=== PATIENT | female | born 1985 | race Hispanic/Latino ===

== ENCOUNTER 2017-10-18 21:10 | Emergency (ER) | payer OTHER, SELFPAY ==
[2017-10-18] MEDS ORDERED: diphenhydrAMINE 12.5 MG/5 ML UDCUP ONE (23:35)
[2017-10-18] MEDS ORDERED: Metoclopramide HCl 10 MG/2 ML VIAL ONE (23:35)
[2017-10-18] MEDS ORDERED: diphenhydrAMINE 50 MG/ML VIAL ONE (23:36)
[2017-10-19 00:01] LABS: #Eosinphils 0.1 thou/uL (0.0-0.7); #Lymphocytes 1.8 thou/uL (1.20-3.40); #Monocytes 0.4 thou/uL (0.11-0.59); %Basophils 0.3 % (0.0-1.0); %Eosinophils 1.1 % (0.0-10.0); %Lymphocytes 28.3 % (21.0-51.0); %Monocytes 6.3 % (0.0-10.0); %Neutrophils 63.9 % (42.0-75.0); Hemoglobin 14.2 g/dL (12.0-16.0); Mean Corpuscular HGB CONC 34.2 g/dL (32.0-36.0); Mean Corpuscular Hemoglobin 31.5 pg (27.0-31.0); Mean Corpuscular Volume 91.9 fl (81.0-99.0); Mean Platelet Volume 7.6 fL (7.4-10.4); Platelet Count 249 thou/uL (130-400); RBC Distribution Width 11.6 % (11.5-14.5); Red Blood Cell (RBC) Count 4.51 mill/uL (4.20-5.40); White Blood Cell (WBC) Count 6.2 thou/uL (4.8-10.8)
[2017-10-19 00:10] LABS: BHCG - Serum Negative (NEGATIVE); Pregs Control Background? CLEAR/WHITE (CLR/WHITE); Pregs Control Bar Appear? YES (CONTROL BAR)
[2017-10-19 00:21] LABS: Bilirubin Negative (Negative); Blood, Urine Large (Negative); Clarity CLEAR (Clear); Glucose, Urine (Dipstick) Negative (Negative); Leukocyte Negative (Negative); Nitrite Negative (Negative); Protein, Urine (Dipstick) Negative (Neg-Trace); Urobilinogen 0.2 mg/dL (0.2-1.0); pH, Urine 6.5 (5.0-9.0)
[2017-10-19 00:23] LABS: ALT (SGPT) 13 U/L (8-55); AST (SGOT) 13 U/L (5-34); Albumin 4.7 g/dL (3.5-5.0); Alkaline Phosphatase 66 U/L (40-150); Anion Gap 12 mmol/L (10-20); BUN (Urea Nitrogen) 12 mg/dL (7.0-18.7); Bilirubin, Total 0.3 mg/dL (0.2-1.2); Calc. Creatinine Clearance 0 mL/min (70-130); Calcium 9.5 mg/dL (7.8-10.44); Carbon Dioxide 22 mmol/L (22-29); Chloride 108 mmol/L (98-107); Estimated GFR-MDRD Greater than 90; Globulin 3.3 g/dL (2.4-3.5); Glucose 82 mg/dL (70-105); Sodium 138 mmol/L (136-145)
[2017-10-19 00:24] LABS: Bacteria/HPF None Seen HPF (None Seen); Hyaline Casts/LPF 0-3 HYALINE CAST LPF (0-3 Hyaline); Pathc Cast-AUWi Flag 0.14 (0-2.49); Squamous Epithelial 0-3 HPF (0-3); WBC/HPF None Seen HPF (0-3)
[2017-10-19] MEDS ORDERED: Ketorolac Tromethamine 30 MG/ML VIAL ONE (01:15)
[2017-10-19] MEDS ORDERED: Methocarbamol 500 MG TAB PO SCH (01:30)
--- NOTE | 2017-10-19 13:35 | CT ---
PRELIMINARY REPORT/[facility]/EMERGENCY AFTER HOURS PROCEDURE: EXAM: CT Head Without Intravenous Contrast CLINICAL HISTORY: 32 years old, female; Pain; Headache; Patient HX: Er 5; F32 presents to ed C/O hand swelling and ALVARADO. Pt had a ALVARADO the past x3 days and reports swelling and pain in her hands bilaterally that starts in he r arms. Pt denies: Fevers, difficulty ambulating, falls/ traumas. Pt has not had a similar episode be fore. TECHNIQUE: Axial computed tomography images of the head/brain without intravenous contrast. COMPARISON: No relevant prior studies available. FINDINGS: Brain: Mild volume loss No hemorrhage.No significant white matter disease. No edema. Ventricles: Unremarkable. No ventriculomegaly. Bones/joints: Unremarkable. No acute fracture. Soft tissues: Unremarkable. Sinuses: Unremarkable as visualized. No acute sinusitis. Mastoid air cells: Unremarkable as visualized. No mastoid effusion. IMPRESSION: No intracranial hemorrhage.Please see discussion above. Thank you for allowing us to participate in the care of your patient. Dictated and Authenticated by: Lico Mobley MD 10/19/2017 12:34 AM Central Time ([place] & [place]) FINAL REPORT NONCONTRAST HEAD CT: Date: 10/18/17 HISTORY: Headache. COMPARISON: None. TECHNIQUE: Noncontrast head CT is performed from skull base to skull vertex. FINDINGS: This report is in agreement with the preliminary report by [facility]. No acute intracranial process. POS: [facility]
== END 2017-10-19 02:19 | disposition home or self-care (01) ==
LOC: ERS 21:10
DX: R51 Headache (principal)
CPT/HCPCS: 70450; 80053; 81003; 81015; 84703; 85025; 96365; 96366; 96375; J1200; J1885; J2765

== ENCOUNTER 2018-09-08 07:48 | Emergency (ER) | payer SELFPAY ==
[2018-09-08 08:29] LABS: Bilirubin Negative (Negative); Blood, Urine Small (Negative); Clarity CLEAR (Clear); Glucose, Urine (Dipstick) Negative (Negative); Leukocyte Negative (Negative); Nitrite Negative (Negative); Protein, Urine (Dipstick) Negative (Neg-Trace); Urobilinogen 0.2 mg/dL (0.2-1.0)
[2018-09-08 08:32] LABS: Bacteria/HPF None Seen HPF (None Seen); Hyaline Casts/LPF 0-3 HYALINE CAST LPF (0-3 Hyaline); Pathc Cast-AUWi Flag 0.14 (0-2.49); Squamous Epithelial 0-3 HPF (0-3); WBC/HPF None Seen HPF (0-3)
--- NOTE | 2018-09-08 09:26 | ULT ---
PELVIC ULTRASOUND: Comparison: None. History: 5 week female with bleeding. Technique: Multiplanar grayscale and color doppler images were obtained in a transabdominal and trans vaginal pelvic ultrasound. Spectral analysis of the doppler waveforms of the ovaries were performed. FINDINGS: No gestational sac is seen within the uterus. The uterus is normal in size. There is a 2.2 cm lesion along the anterior aspect of the uterus which may represent a small fibroid. The endometrial stripe i s normal in thickness measuring 11 mm. A small amount of free fluid is seen in the pelvis. Both ovaries are normal in size and appearance an d demonstrate normal internal flow. IMPRESSION: 1. No identified. 2. Possible small uterine fibroid. POS: [facility]
== END 2018-09-08 09:57 | disposition home or self-care (01) ==
LOC: ERS 07:48
DX: O20.0 Threatened abortion (principal); Z3A.01 Less than 8 weeks gestation of pregnancy
CPT/HCPCS: 36415; 76856; 81003; 81015; 84702; 86900; 86901

== ENCOUNTER 2019-11-27 11:01 | Emergency (ER) | payer OTHER | END 2019-11-27 12:00 | disposition home or self-care (01) | LOC: ERS 11:01 | DX: J20.9 Acute bronchitis, unspecified (principal) | CPT/HCPCS: 99283 ==

== ENCOUNTER 2019-11-30 10:51 | Inpatient (IN) | payer OTHER, SELFPAY ==
[2019-11-30] MEDS ORDERED: Azithromycin 500 MG VIAL ONE (11:41)
[2019-11-30] MEDS ORDERED: cefTRIAXone\\ROCEPHIN 1 GM VIAL ONE (11:41)
[2019-11-30 11:44] LABS: Bacteria/HPF None Seen HPF (None Seen); Bilirubin Negative (Negative); Blood, Urine Negative (Negative); Clarity Clear (Clear); Glucose, Urine (Dipstick) Normal (Negative); Leukocyte Negative Leu/uL (Negative); Nitrite Negative (Negative); Protein, Urine (Dipstick) 100 mg/dL (Neg-Trace); RBC/HPF 0-3 HPF (0-3); WBC/HPF 0-3 HPF (0-3)
[2019-11-30 11:50] LABS: #Lymphocytes 1.7 thou/uL (1.20-3.40); #Monocytes 0.7 thou/uL (0.11-0.59); #Neutrophils 12.4 thou/uL (1.40-6.50); %Basophils 0.1 % (0.0-1.0); %Lymphocytes 11.4 % (21.0-51.0); %Monocytes 4.7 % (0.0-10.0); %Neutrophils 83.9 % (42.0-75.0); Hemoglobin 6.3 g/dL (12.0-16.0); Mean Corpuscular HGB CONC 33.5 g/dL (32.0-36.0); Mean Corpuscular Hemoglobin 30.9 pg (27.0-31.0); Mean Corpuscular Volume 92.2 fL (78.0-98.0); Mean Platelet Volume 7.7 fL (7.4-10.4); Platelet Count 451 thou/uL (130-400); RBC Distribution Width 11.5 % (11.5-14.5); Red Blood Cell (RBC) Count 2.02 mill/uL (4.20-5.40); White Blood Cell (WBC) Count 14.7 thou/uL (4.8-10.8)
--- NOTE | 2019-11-30 11:50 | RAD ---
EXAM: CHEST ONE VIEW HISTORY: Bronchitis. Decreased oxygen saturation. Elevated heart rate. COMPARISON: None FINDINGS: Cardiac silhouette and pulmonary vasculature are within normal limits. There are increased interstiti al and patchy parenchymal densities seen in the left perihilar location and at each lung base. No pleural fluid is seen. The osseous structures are intact. IMPRESSION: Increased interstitial and patchy parenchymal densities seen in the left perihilar location and at ea ch lung base. Findings are suggestive of pneumonia, and findings could be related to atypical pneumonia. Viral pneumonitis is also a differential consideration.
[2019-11-30 12:20] LABS: ALT (SGPT) 26 U/L (8-55); AST (SGOT) 22 U/L (5-34); Albumin 3.7 g/dL (3.5-5.0); Alkaline Phosphatase 63 U/L (40-110); Anion Gap 13 mmol/L (10-20); BUN (Urea Nitrogen) 9 mg/dL (7.0-18.7); Bilirubin, Total 0.4 mg/dL (0.2-1.2); Calc. Creatinine Clearance 0 mL/min (70-130); Calcium 8.3 mg/dL (7.8-10.44); Carbon Dioxide 19 mmol/L (22-29); Chloride 108 mmol/L (98-107); Estimated GFR-MDRD Greater than 90; Globulin 3.5 g/dL (2.4-3.5); Glucose 119 mg/dL (70-105); Potassium 3.4 mmol/L (3.5-5.1); Protein, Total 7.2 g/dL (6.0-8.3); Sodium 137 mmol/L (136-145)
[2019-11-30] MEDS ORDERED: Ondansetron PF 4 MG/2 ML Vial IVP PRN (12:49)
[2019-11-30 12:58] LABS: BHCG - Serum Negative (NEGATIVE); Pregs Control Background? CLEAR/WHITE (CLR/WHITE); Pregs Control Bar Appear? YES (CONTROL BAR)
[2019-11-30] MEDS ORDERED: Sodium Chloride 0.9% 1,000 ML IV SCH (13:00)
[2019-11-30] MEDS: Sodium Chloride 0.9% 1,000 ML IV SCH (16:29)
[2019-11-30 17:22] LABS: SARS-CoV-2 MS2 Negative; SARS-CoV-2 N Gene Positive; SARS-CoV-2 S Gene Positive; SARS-CoV-2 orf1ab Positive
[2019-11-30] MEDS: Acetaminophen 325 MG TAB PO PRN (17:40)
[2019-11-30 18:13] VITALS: BMI 26.9
[2019-11-30 22:40] LABS: Hemoglobin 13.3 g/dL (12.0-16.0)
[2019-12-01 04:24] LABS: Band 13 % (5-11); Hemoglobin 13.4 g/dL (12.0-16.0); Lymphocytes 18 % (21-51); MDiff Complete? YES; Mean Corpuscular HGB CONC 33.5 g/dL (32.0-36.0); Mean Corpuscular Hemoglobin 30.9 pg (27.0-31.0); Mean Corpuscular Volume 92.3 fL (78.0-98.0); Monocytes 6 % (0-10); Neutrophil 63 % (42-75); Platelet Count 298 thou/uL (130-400); Platelet Morphology Comment Appears Adequate; RBC Morphology Normal; Red Blood Cell (RBC) Count 4.33 mill/uL (4.20-5.40); White Blood Cell (WBC) Count 6.5 thou/uL (4.8-10.8)
[2019-12-01 04:33] LABS: Anion Gap 12 mmol/L (10-20); BUN (Urea Nitrogen) 7 mg/dL (7.0-18.7); Calc. Creatinine Clearance 164 mL/min (70-130); Calcium 7.7 mg/dL (7.8-10.44); Carbon Dioxide 19 mmol/L (22-29); Chloride 112 mmol/L (98-107); Estimated GFR-MDRD Greater than 90; Glucose 97 mg/dL (70-105); Potassium 3.9 mmol/L (3.5-5.1); Sodium 139 mmol/L (136-145)
--- NOTE | 2019-12-01 05:37 | HP ---
CHIEF COMPLAINT: Shortness of breath. HISTORY OF PRESENT ILLNESS: The patient is a 34-year-old female, who presented to the emergency department with complaints of shortness of breath and fever for the past week. The patient's symptoms started over a week ago and she visited an outside emergency department, where she was diagnosed with pneumonia and given some antibiotics. The patient went home and took the antibiotics; however, her symptoms worsened and her fever did not resolve, which prompted her to come back to the ER today. She was found to be febrile, tachycardic, and tachypneic with elevated white count concerning for sepsis. Chest x-ray showed bilateral diffuse infiltrates suggesting viral infection. REVIEW OF SYSTEMS: Negative except as noted in HPI. PAST MEDICAL AND SURGICAL HISTORY: No significant history noted. SOCIAL HISTORY: The patient drinks socially. Denies smoking or illicit drug use. FAMILY HISTORY: Noncontributory for her current presentation. PHYSICAL EXAMINATION: GENERAL: The patient is alert and oriented x3. HEENT: Head is normocephalic and atraumatic. Extraocular muscles are intact. NECK: Supple. CHEST: Auscultation reveals crackles bilaterally. CARDIOVASCULAR: Reveals normal S1 and S2, regular rate and rhythm. No murmurs, rubs, or gallops. ABDOMEN: Soft, nontender, and nondistended. EXTREMITIES: Show no edema. ASSESSMENT: 1. Sepsis. 2. Acute hypoxic respiratory failure. 3. Bilateral pneumonia. 4. Coronavirus infection, likely. PLAN: Admit the patient to the hospital and start broad-spectrum antibiotics with IV ceftriaxone and azithromycin for pneumonia. Start IV fluids. Tylenol for fever and pain control. Follow the results of the cultures and serology for coronavirus. Job ID: [id number]
[2019-12-01] MEDS ORDERED: HYDROcodone/Chlorphen Polis 5 ML UDCUP PO PRN (07:44)
--- NOTE | 2019-12-01 08:12 | CON ---
DATE OF CONSULTATION: 12/01/2019 CONSULTING PHYSICIAN: Dr. Kidd from the [facility]. REASON FOR CONSULTATION: COVID-19 pneumonia. HISTORY OF PRESENT ILLNESS: A 34-year-old female, who speaks Macanese only. She came in last night with shortness of breath and fever that had been occurring over the last week. She says symptoms started over a week ago. She was seen in the outside hospital. She was diagnosed with pneumonia, given some antibiotics. She indicates that several family members have similar symptoms including her son. She has been diagnosed with COVID-19 pneumonia by PCR. PAST MEDICAL HISTORY: Unremarkable. PAST SURGICAL HISTORY: None. SOCIAL HISTORY: Nonsmoker. She does drink occasionally. FAMILY MEDICAL HISTORY: Unremarkable. REVIEW OF SYSTEMS: Otherwise negative for cough and congestion. PHYSICAL EXAMINATION: VITAL SIGNS: Temperature 98.3, O2 saturation is 99% on 3 L, and pulse 57. HEENT: Unremarkable. NECK: No adenopathy or JVD. LUNGS: Crackles bilaterally. CARDIOVASCULAR: S1 and S2. Regular. ABDOMEN: Soft and nontender. EXTREMITIES: No clubbing, cyanosis, or edema. LABORATORY DATA: Urinalysis shows proteinuria. White blood cell count 6.5, hematocrit 39.9, platelet count 298 with 63% neutrophils, 13% bands. Sodium 139, potassium 3.9, chloride 112, CO2 of 19, BUN 7, creatinine 0.5, and glucose 97. Chest x-ray shows bilateral infiltrative changes. ASSESSMENT: COVID-19 with pneumonia. RECOMMENDATIONS: 1. I would recommend generalized supportive care with low-flow oxygen, antitussive medication, gentle rehydration. 2. If worsens, consider plasma and IL-6 inhibitor. 3. From my standpoint, she is stable enough to go to the COVID unit. Job ID: [id number]
[2019-12-01] MEDS: Sodium Chloride 0.9% 1,000 ML IV SCH ×2 (08:33)
[2019-12-01] MEDS: Enoxaparin Sodium 40 MG/0.4 ML SYRINGE SC SCH (08:33)
[2019-12-01] MEDS: Famotidine/PF 20 mg/2ml Vial SLOW IVP SCH ×2 (08:34→20:30)
[2019-12-01] MEDS ORDERED: cefTRIAXone\\ROCEPHIN 2 GM in Sodium Chloride 0.9% 100 ML IVPB SCH (11:00)
--- NOTE | 2019-12-01 11:08 | PDOC.HOSPP ---
- Subjective Encounter Date: 12/01/19 Encounter Time: 10:00 Subjective: Patient seen and examined. No overnight events, pt has cough, mild dyspnea, but she overall feels OK - Objective Vital Signs & Weight: Vital Signs (12 hours) Temp Pulse Ox 12/01/19 08:00 98.3 F 99 12/01/19 04:00 98.3 F 12/01/19 00:21 96 12/01/19 00:00 97.8 F Weight Weight 161 lb 9.581 oz Most Recent Monitor Data Heart Rate from ECG 66 NIBP 115/69 NIBP BP-Mean 84 Respiration from ECG 40 SpO2 98 I&O: 11/30/19 12/01/19 12/02/19 06:59 06:59 06:59 Intake Total 2466 Output Total 1750 Balance 716 Result Diagrams: 12/01/19 03:57 12/01/19 03:57 Radiology Reviewed by me: Yes EKG Reviewed by me: Yes Hospitalist ROS - Review of Systems Constitutional: denies: fever, chills, sweats, weakness, malaise, other Respiratory: reports: cough, shortness of breath. denies: dry, hemoptysis, SOB with excertion, pleuritic pain, sputum, wheezing, other Cardiovascular: denies: chest pain, palpitations, orthopnea, paroxysmal noc. dyspnea, edema, light headedness, other Gastrointestinal: denies: nausea, vomiting, abdominal pain, diarrhea, constipation, melena, hematochezia, other Genitourinary: denies: dysuria, frequency, incontinence, hematuria, retention, other Musculoskeletal: denies: neck pain, shoulder pain, arm pain, back pain, hand pain, leg pain, foot pain, other Skin: denies: rash, lesions, nain, bruising, other - Medication Medications: Active Medications Generic Name Dose Route Start Last Admin Trade Name Freq PRN Reason Stop Dose Admin Acetaminophen 650 mg 11/30/19 12:49 11/30/19 17:40 Tylenol PO 650 mg Q4H PRN Administration Headache/Fever/Mild Pain (1-3) Enoxaparin Sodium 40 mg 12/01/19 09:00 12/01/19 08:33 Lovenox SC 40 mg 0900 NATALYA Administration Famotidine 20 mg 12/01/19 09:00 12/01/19 08:34 Pepcid SLOW IVP 20 mg BID NATALYA Administration Sodium Chloride 1,000 mls @ 100 mls/hr 11/30/19 13:00 12/01/19 08:33 Normal Saline 0.9% IV 1,000 mls .Q10H NATALYA Administration - Exam General Appearance: NAD, awake alert Eye: PERRL, anicteric sclera ENT: normocephalic atraumatic, no oropharyngeal lesions, moist mucosa Neck: supple, symmetric, no JVD, no thyromegaly Heart: RRR, no murmur, no gallops, no rubs Respiratory: CTAB, no wheezes, no rales Gastrointestinal: soft, non-tender, non-distended, normal bowel sounds Extremities: no cyanosis, no clubbing, no edema Skin: normal turgor, no lesions Neurological: no focal deficits Musculoskeletal: normal tone, normal strength Psychiatric: normal affect, normal behavior Hosp A/P (1) COVID-19 virus infection Code(s): U07.1 - COVID-19 Status: Acute (2) Pneumonia Code(s): J18.9 - PNEUMONIA, UNSPECIFIED ORGANISM Status: Acute Plan: due to covid-19 - Plan old records reviewed/req, continue antibiotics today will transfer to regular floor will monitor in hospital for any deterioration, currently stable I spoke with patient with ic design manager phone and plan of care discussed to her. DC IVF currently on rocephin and azithromycin will get EKG to check QT interval medication reviewed and continue to provide symptomatic care if condition deteriorates, will consider plasma therapy discussed with pulmonary
[2019-12-01] MEDS ORDERED: hydrALAZINE 20 MG/ML VIAL SLOW IVP PRN (11:19)
[2019-12-01] MEDS ORDERED: Senokot S 8.6-50 MG TAB PO PRN (11:19)
[2019-12-01] MEDS ORDERED: Bisacodyl 5 MG TAB PO PRN (11:19)
[2019-12-01] MEDS ORDERED: Benzonatate 100 MG CAP PO PRN (11:19)
[2019-12-01] MEDS ORDERED: Loperamide HCl 2 MG CAP PO PRN (11:19)
[2019-12-01] MEDS ORDERED: Cepastat Lozenges 1 LOZ PO PRN (11:19)
[2019-12-01] MEDS ORDERED: Diabetic Tussin 200 MG/10 ML UDCUP PO PRN (11:19)
[2019-12-01] MEDS ORDERED: Loratadine 10 MG TAB PO PRN (11:19)
[2019-12-01] MEDS ORDERED: Sodium Chloride 0.65% Nasal 44 ML BOT EA NARE PRN (11:19)
[2019-12-01] MEDS: Azithromycin 500 MG in Sodium Chloride 0.9% 250 ML 250 ML IVPB SCH (12:03)
[2019-12-02] MEDS: Acetaminophen 325 MG TAB PO PRN ×2 (03:27→12:02)
[2019-12-02 04:58] LABS: Band 9 % (5-11); Eosinophils 1 % (0-10); Hemoglobin 13.3 g/dL (12.0-16.0); Lymphocytes 11 % (21-51); MDiff Complete? YES; Mean Corpuscular Hemoglobin 30.3 pg (27.0-31.0); Mean Corpuscular Volume 91.6 fL (78.0-98.0); Mean Platelet Volume 7.7 fL (7.4-10.4); Monocytes 5 % (0-10); Neutrophil 74 % (42-75); Platelet Count 338 thou/uL (130-400); Platelet Morphology Comment Appears Adequate; RBC Distribution Width 11.9 % (11.5-14.5); Red Blood Cell (RBC) Count 4.39 mill/uL (4.20-5.40); White Blood Cell (WBC) Count 8.3 thou/uL (4.8-10.8)
[2019-12-02 05:10] LABS: Anion Gap 11 mmol/L (10-20); BUN (Urea Nitrogen) 6 mg/dL (7.0-18.7); Calc. Creatinine Clearance 158 mL/min (70-130); Carbon Dioxide 20 mmol/L (22-29); Chloride 110 mmol/L (98-107); Estimated GFR-MDRD Greater than 90; Glucose 97 mg/dL (70-105); Potassium 3.2 mmol/L (3.5-5.1); Sodium 138 mmol/L (136-145)
[2019-12-02] MEDS: Zinc Sulfate 220 MG CAP PO SCH (08:36)
[2019-12-02] MEDS: Enoxaparin Sodium 40 MG/0.4 ML SYRINGE SC SCH (08:36)
[2019-12-02] MEDS: Ascorbic Acid 500 mg Chewable Tablet PO SCH (08:36)
[2019-12-02] MEDS: Famotidine/PF 20 mg/2ml Vial SLOW IVP SCH ×2 (08:36→20:11)
--- NOTE | 2019-12-02 09:02 | PRG ---
DATE OF SERVICE: 12/02/2019 SUBJECTIVE: The patient says she is feeling much better today. Her cough has dissipated. OBJECTIVE: VITAL SIGNS: Temperature 98.7, pulse 74, O2 saturation 100% on 3 L, blood pressure 98/55, respiratory rate in the high teens. HEENT: Unremarkable. NECK: No JVD. LUNGS: Clear anteriorly. CARDIAC: S1, S2. Regular. ABDOMEN: Soft. EXTREMITIES: No edema. LABORATORY DATA: Sodium 138, potassium 3.2, chloride 110, CO2 of 20, BUN 6, creatinine 0.5, and glucose 97. Ferritin level 197. C-reactive protein 3.7. White blood cell count 8.3, hematocrit 40, and platelet count 338. ASSESSMENT: COVID-19 infection, so far seems to be getting better. She has pneumonia with this. RECOMMENDATION: Continue monitoring oxygen level and continue generalized supportive care. If she worsens, I would have her placed in the prone position for periods during the day and also consider plasma. Job ID: [id number]
--- NOTE | 2019-12-02 09:49 | PDOC.HOSPP ---
- Subjective Encounter Date: 12/02/19 Encounter Time: 07:45 Subjective: last night she was short of breath, required more oxygen. this morning she feels better. - Objective Vital Signs & Weight: Vital Signs (12 hours) Temp Pulse Resp BP Pulse Ox 12/02/19 07:31 97 12/02/19 03:35 97 12/02/19 03:20 98.7 F 74 30 H 98/55 L 89 L Weight Admit Weight 161 lb 9.581 oz Weight 161 lb 9.581 oz Most Recent Monitor Data Heart Rate from ECG 66 NIBP 115/69 NIBP BP-Mean 84 Respiration from ECG 40 SpO2 98 I&O: 12/01/19 12/02/19 12/03/19 06:59 06:59 06:59 Intake Total 2466 600 Output Total 1750 Balance 716 600 Result Diagrams: 12/02/19 04:29 12/02/19 04:29 EKG Reviewed by me: Yes Hospitalist ROS - Review of Systems Eyes: denies: pain, vision change, conjunctivae inflammation, eyelid inflammation, redness, other ENT: denies: ear pain, ear discharge, nose pain, nose discharge, nose congestion , mouth pain, mouth swelling, throat pain, throat swelling, other Respiratory: reports: cough, shortness of breath. denies: dry, hemoptysis, SOB with excertion, pleuritic pain, sputum, wheezing, other Cardiovascular: denies: chest pain, palpitations, orthopnea, paroxysmal noc. dyspnea, edema, light headedness, other Gastrointestinal: denies: nausea, vomiting, abdominal pain, diarrhea, constipation, melena, hematochezia, other Genitourinary: denies: dysuria, frequency, incontinence, hematuria, retention, other Musculoskeletal: denies: neck pain, shoulder pain, arm pain, back pain, hand pain, leg pain, foot pain, other Skin: denies: rash, lesions, nain, bruising, other - Medication Medications: Active Medications Generic Name Dose Route Start Last Admin Trade Name Freq PRN Reason Stop Dose Admin Acetaminophen 650 mg 11/30/19 12:49 12/02/19 03:27 Tylenol PO 650 mg Q4H PRN Administration Headache/Fever/Mild Pain (1-3) Ascorbic Acid 1,000 mg 12/02/19 09:00 12/02/19 08:36 Vitamin C PO 1,000 mg DAILY NATALYA Administration Chlorphenir/Hydrocodone Polistirex 5 ml 12/01/19 07:44 12/02/19 03:31 Tussionex PO 5 ml Q12H PRN Administration Cough Enoxaparin Sodium 40 mg 12/01/19 09:00 12/02/19 08:36 Lovenox SC 40 mg 0900 NATALYA Administration Famotidine 20 mg 12/01/19 09:00 12/02/19 08:36 Pepcid SLOW IVP 20 mg BID NATALYA Administration Azithromycin 500 mg/ Sodium 250 mls @ 250 mls/hr 12/01/19 12:00 12/01/19 12: 03 Chloride IVPB 250 mls 1200 NATALYA Administration Loperamide HCl 2 mg 12/01/19 11:19 12/01/19 21:00 Imodium PO 2 mg PRN PRN Administration Diarrhea/Loose Stools Sodium Chloride 10 ml 12/02/19 09:00 12/02/19 08:36 Flush - Normal Saline IVF 10 ml Q12HR NATALYA Administration Zinc Sulfate 220 mg 12/02/19 09:00 12/02/19 08:36 Zinc Sulfate PO 220 mg DAILY NTAALYA Administration - Exam General Appearance: NAD, awake alert Eye: PERRL, anicteric sclera ENT: normocephalic atraumatic, no oropharyngeal lesions Neck: supple, symmetric, no JVD, no thyromegaly Heart: RRR, no murmur, no gallops, no rubs Respiratory: no wheezes, no rales Respiratory - other findings: air entry reduced at base Gastrointestinal: soft, non-tender, non-distended, normal bowel sounds Extremities: no cyanosis, no clubbing, no edema Skin: normal turgor, no lesions Neurological: no focal deficits Musculoskeletal: normal tone, normal strength Psychiatric: normal affect, normal behavior Hosp A/P (1) COVID-19 virus infection Code(s): U07.1 - COVID-19 Status: Acute (2) Pneumonia Code(s): J18.9 - PNEUMONIA, UNSPECIFIED ORGANISM Status: Acute - Plan old records reviewed/req today will transfer to regular floor will monitor in hospital for any deterioration, currently stable I spoke with patient with line production cook phone and plan of care discussed to her. DC IVF currently on rocephin and azithromycin will get EKG to check QT interval medication reviewed and continue to provide symptomatic care if condition deteriorates, will consider plasma therapy discussed with pulmonary 12/02/19 overall doing OK will monitor oxygen level and wean off as tolerated will add vitamin C and Zinc sulfate
[2019-12-02] MEDS: Azithromycin 500 MG in Sodium Chloride 0.9% 250 ML 250 ML IVPB SCH (11:50)
[2019-12-02] MEDS: Metoclopramide HCl 10 MG/2 ML VIAL IVP PRN (12:02)
[2019-12-03] MEDS: Acetaminophen 325 MG TAB PO PRN ×4 (00:05→18:25)
[2019-12-03 05:16] LABS: Anion Gap 13 mmol/L (10-20); BUN (Urea Nitrogen) 8 mg/dL (7.0-18.7); Calc. Creatinine Clearance 148 mL/min (70-130); Calcium 8.1 mg/dL (7.8-10.44); Carbon Dioxide 20 mmol/L (22-29); Chloride 108 mmol/L (98-107); Estimated GFR-MDRD Greater than 90; Glucose 80 mg/dL (70-105); Potassium 3.4 mmol/L (3.5-5.1); Sodium 138 mmol/L (136-145)
[2019-12-03 05:43] LABS: Hemoglobin 13.6 g/dL (12.0-16.0); Mean Corpuscular HGB CONC 34.8 g/dL (32.0-36.0); Mean Corpuscular Hemoglobin 31.3 pg (27.0-31.0); Platelet Count 343 thou/uL (130-400); RBC Distribution Width 11.6 % (11.5-14.5); Red Blood Cell (RBC) Count 4.36 mill/uL (4.20-5.40); White Blood Cell (WBC) Count 7.5 thou/uL (4.8-10.8)
[2019-12-03 06:46] LABS: Band 7 % (5-11); Eosinophils 1 % (0-10); Lymphocytes 25 % (21-51); MDiff Complete? YES; Monocytes 6 % (0-10); Neutrophil 61 % (42-75)
[2019-12-03] MEDS: Zinc Sulfate 220 MG CAP PO SCH (08:08)
[2019-12-03] MEDS: Famotidine/PF 20 mg/2ml Vial SLOW IVP SCH ×2 (08:09→20:21)
[2019-12-03] MEDS: Enoxaparin Sodium 40 MG/0.4 ML SYRINGE SC SCH (08:09)
[2019-12-03] MEDS: Ascorbic Acid 500 mg Chewable Tablet PO SCH (08:09)
[2019-12-03] MEDS: Metoclopramide HCl 10 MG/2 ML VIAL IVP PRN ×2 (09:06→18:25)
--- NOTE | 2019-12-03 09:41 | PRG ---
DATE OF SERVICE: 12/03/2019 SUBJECTIVE: This patient was monitored via [employer] today. She is saturating about 95% on 1 L and 91% on 0.5 L and seemed to be doing well from all reports. I would recommend discharging her to home as soon as it is practical from oxygenation standpoint. No further recommendations at this time. Job ID: [id number]
[2019-12-03] MEDS: Azithromycin 500 MG in Sodium Chloride 0.9% 250 ML 250 ML IVPB SCH (11:57)
--- NOTE | 2019-12-03 17:59 | PDOC.HOSPP ---
- Subjective Encounter Date: 12/03/19 Encounter Time: 17:00 Subjective: pt up in bed feels a bit better - Objective Vital Signs & Weight: Vital Signs (12 hours) Temp Pulse Pulse Resp BP BP Pulse Ox 12/03/19 15:05 98.3 F 58 L 18 135/74 94 L 12/03/19 11:57 97.5 F L 60 18 106/64 93 L 12/03/19 11:31 65 110/65 12/03/19 08:25 97.2 F L 70 18 120/71 91 L 12/03/19 07:17 95 Pulse Ox Pulse Ox Pulse Ox 12/03/19 15:05 12/03/19 11:57 12/03/19 11:31 85 L 92 L 92 L 12/03/19 08:25 12/03/19 07:17 Weight Admit Weight 161 lb 9.581 oz Weight 161 lb 9.581 oz Most Recent Monitor Data Heart Rate from ECG 66 NIBP 115/69 NIBP BP-Mean 84 Respiration from ECG 40 SpO2 98 I&O: 12/02/19 12/03/19 12/04/19 06:59 06:59 06:59 Intake Total 600 Balance 600 Result Diagrams: 12/03/19 04:44 12/03/19 04:44 Hospitalist ROS - Review of Systems Respiratory: reports: cough, shortness of breath Cardiovascular: denies: chest pain, palpitations, orthopnea, paroxysmal noc. dyspnea, edema, light headedness, other Gastrointestinal: denies: nausea, vomiting, abdominal pain, diarrhea, constipation, melena, hematochezia, other Genitourinary: denies: dysuria, frequency, incontinence, hematuria, retention, other - Medication Medications: Active Medications Generic Name Dose Route Start Last Admin Trade Name Freq PRN Reason Stop Dose Admin Acetaminophen 650 mg 11/30/19 12:49 12/03/19 14:55 Tylenol PO 650 mg Q4H PRN Administration Headache/Fever/Mild Pain (1-3) Ascorbic Acid 1,000 mg 12/02/19 09:00 12/03/19 08:09 Vitamin C PO 1,000 mg DAILY NATALYA Administration Chlorphenir/Hydrocodone Polistirex 5 ml 12/01/19 07:44 12/02/19 03:31 Tussionex PO 5 ml Q12H PRN Administration Cough Enoxaparin Sodium 40 mg 12/01/19 09:00 12/03/19 08:09 Lovenox SC 40 mg 0900 NATALYA Administration Famotidine 20 mg 12/01/19 09:00 12/03/19 08:09 Pepcid SLOW IVP 20 mg BID NATALYA Administration Azithromycin 500 mg/ Sodium 250 mls @ 250 mls/hr 12/01/19 12:00 12/03/19 11: 57 Chloride IVPB 250 mls 1200 NATALYA Administration Loperamide HCl 2 mg 12/01/19 11:19 12/01/19 21:00 Imodium PO 2 mg PRN PRN Administration Diarrhea/Loose Stools Metoclopramide HCl 5 mg 12/01/19 11:19 12/03/19 09:06 Reglan IVP 5 mg Q4H PRN Administration Nausea Sodium Chloride 10 ml 12/02/19 09:00 12/03/19 08:09 Flush - Normal Saline IVF 10 ml Q12HR NATALYA Administration Zinc Sulfate 220 mg 12/02/19 09:00 12/03/19 08:08 Zinc Sulfate PO 220 mg DAILY NATALYA Administration - Exam Neck: negative: supple, symmetric, no JVD, no thyromegaly, no lymphadenopathy, no carotid bruit, JVD Heart: negative: RRR, no murmur, no gallops, no rubs, normal peripheral pulses, irregular, diminshed peripheral pulses, murmur present, II/IV, III/IV Respiratory: no wheezes, no rales Gastrointestinal: negative: soft, non-tender, non-distended, normal bowel sounds , no palpable masses, no hepatomegaly, no splenomegaly, no bruit, no guarding, no rigidity, tender to palpation, distended, diminished bowl sounds, voluntary guarding Hosp A/P (1) COVID-19 virus infection Code(s): U07.1 - COVID-19 Status: Acute (2) Pneumonia Code(s): J18.9 - PNEUMONIA, UNSPECIFIED ORGANISM Status: Acute (3) Dehydration Code(s): E86.0 - DEHYDRATION Status: Acute - Plan will continue supportive care. pt on azithromycin. will check ddimer on pt. she is on dvt ppx. she is still on oxygen and is coughing up yellow sputum.
[2019-12-04] MEDS: Acetaminophen 325 MG TAB PO PRN ×3 (00:41→18:04)
[2019-12-04 05:22] LABS: Anion Gap 13 mmol/L (10-20); BUN (Urea Nitrogen) 6 mg/dL (7.0-18.7); Calc. Creatinine Clearance 153 mL/min (70-130); Calcium 8.3 mg/dL (7.8-10.44); Carbon Dioxide 20 mmol/L (22-29); Chloride 107 mmol/L (98-107); Estimated GFR-MDRD Greater than 90; Glucose 93 mg/dL (70-105); Potassium 3.4 mmol/L (3.5-5.1); Sodium 137 mmol/L (136-145)
[2019-12-04 05:26] LABS: Band 5 % (5-11); Hemoglobin 13.5 g/dL (12.0-16.0); Lymphocytes 12 % (21-51); MDiff Complete? YES; Mean Corpuscular HGB CONC 32.7 g/dL (32.0-36.0); Mean Corpuscular Hemoglobin 29.6 pg (27.0-31.0); Mean Corpuscular Volume 90.3 fL (78.0-98.0); Mean Platelet Volume 7.4 fL (7.4-10.4); Monocytes 7 % (0-10); Neutrophil 76 % (42-75); Platelet Count 381 thou/uL (130-400); RBC Distribution Width 11.5 % (11.5-14.5); Red Blood Cell (RBC) Count 4.58 mill/uL (4.20-5.40); White Blood Cell (WBC) Count 7.9 thou/uL (4.8-10.8)
[2019-12-04] MEDS: Famotidine/PF 20 mg/2ml Vial SLOW IVP SCH ×2 (08:53→21:46)
[2019-12-04] MEDS: Ascorbic Acid 500 mg Chewable Tablet PO SCH (08:53)
[2019-12-04] MEDS: Enoxaparin Sodium 40 MG/0.4 ML SYRINGE SC SCH ×2 (08:54→11:03)
[2019-12-04] MEDS: Zinc Sulfate 220 MG CAP PO SCH (08:57)
[2019-12-04] MEDS: Metoclopramide HCl 10 MG/2 ML VIAL IVP PRN (10:55)
[2019-12-04] MEDS: Azithromycin 500 MG in Sodium Chloride 0.9% 250 ML 250 ML IVPB SCH (12:15)
[2019-12-04] MEDS: Calcium Carbonate 500 MG ChewTAB PO PRN ×2 (12:26→21:46)
--- NOTE | 2019-12-04 16:32 | PDOC.HOSPP ---
- Subjective Encounter Date: 12/04/19 Encounter Time: 15:15 Subjective: f/u for COVID-19 PNA with hypoxic resp failure receiving Zithromax/Zinc/O2. Remains on 2-3L/min by NC. - Objective Vital Signs & Weight: Vital Signs (12 hours) Temp Pulse Resp BP BP Pulse Ox 12/04/19 15:15 99.2 F 103 H 18 94/51 L 91 L 12/04/19 12:25 93 L 12/04/19 11:55 100.3 F H 97 20 108/60 93 L 12/04/19 08:55 99.5 F 63 16 124/68 92 L 12/04/19 05:35 98.5 F 65 24 H 131/76 99 Weight Admit Weight 161 lb 9.581 oz Weight 161 lb 9.581 oz Most Recent Monitor Data Heart Rate from ECG 66 NIBP 115/69 NIBP BP-Mean 84 Respiration from ECG 40 SpO2 98 I&O: 12/03/19 12/04/19 12/05/19 06:59 06:59 06:59 Intake Total 480 Output Total 150 Balance 330 Result Diagrams: 12/04/19 04:45 12/04/19 04:45 Additional Labs: Microbiology 11/30/19 11:37 Venous blood - Right Hand Blood Culture - Preliminary NO GROWTH AT 48 HOURS 11/30/19 11:37 Venous blood - Left Hand Blood Culture - Preliminary NO GROWTH AT 48 HOURS Laboratory Tests 11/30/19 12/03/19 12/03/19 12:43 04:44 04:44 D-Dimer Potassium 3.4 L Ferritin C-Reactive Protein 6.01 H COVID-19 PCR DETECTED A* 12/03/19 12/04/19 12/04/19 04:44 04:45 04:45 D-Dimer 0.83 H Potassium Ferritin 180.30 C-Reactive Protein 6.73 H COVID-19 PCR EKG Reviewed by me: Yes (Tele - sinus tachycardia) Hospitalist ROS - Medication Medications: Active Medications Generic Name Dose Route Start Last Admin Trade Name Freq PRN Reason Stop Dose Admin Acetaminophen 650 mg 11/30/19 12:49 12/04/19 12:26 Tylenol PO 650 mg Q4H PRN Administration Headache/Fever/Mild Pain (1-3) Ascorbic Acid 1,000 mg 12/02/19 09:00 12/04/19 08:53 Vitamin C PO 1,000 mg DAILY NATALYA Administration Calcium Carbonate 1,000 mg 12/01/19 11:19 12/04/19 12:26 Tums PO 1,000 mg Q4H PRN Administration Heartburn or Indigestion Chlorphenir/Hydrocodone Polistirex 5 ml 12/01/19 07:44 12/02/19 03:31 Tussionex PO 5 ml Q12H PRN Administration Cough Enoxaparin Sodium 40 mg 12/01/19 09:00 12/04/19 11:03 Lovenox SC Not Given 0900 NATALYA Famotidine 20 mg 12/01/19 09:00 12/04/19 08:53 Pepcid SLOW IVP 20 mg BID NATALYA Administration Azithromycin 500 mg/ Sodium 250 mls @ 250 mls/hr 12/01/19 12:00 12/04/19 12: 15 Chloride IVPB 250 mls 1200 NATALYA Administration Loperamide HCl 2 mg 12/01/19 11:19 12/01/19 21:00 Imodium PO 2 mg PRN PRN Administration Diarrhea/Loose Stools Metoclopramide HCl 5 mg 12/01/19 11:19 12/04/19 10:55 Reglan IVP 5 mg Q4H PRN Administration Nausea Sodium Chloride 10 ml 12/02/19 09:00 12/04/19 08:54 Flush - Normal Saline IVF 10 ml Q12HR NATALYA Administration Zinc Sulfate 220 mg 12/02/19 09:00 12/04/19 08:57 Zinc Sulfate PO 220 mg DAILY NATALYA Administration - Exam General Appearance: awake alert General - other findings: responsive to questions Eye: PERRL, anicteric sclera ENT: normocephalic atraumatic, no oropharyngeal lesions Neck: supple, symmetric, no JVD, no thyromegaly, no lymphadenopathy Heart: no murmur, no rubs, normal peripheral pulses Heart - other findings: S1, S2 tachycardia Respiratory: tachypneic Respiratory - other findings: diminished in bases, few coarse sounds Gastrointestinal: soft, non-tender, non-distended, normal bowel sounds, no palpable masses Extremities: no cyanosis, no clubbing, no edema Skin: normal turgor, no lesions Neurological: cranial nerve grossly intact, no new deficit Musculoskeletal: normal tone, normal strength, no muscle wasting Psychiatric: normal affect, A&O x 3 Hosp A/P (1) COVID-19 virus infection Code(s): U07.1 - COVID-19 Status: Acute Plan: Continue resp isolation, Zithromax, O2 support (2) Acute respiratory failure with hypoxia Code(s): J96.01 - ACUTE RESPIRATORY FAILURE WITH HYPOXIA Status: Acute Plan: O2 supplementation, wean as clinically indicated, Albuterol MDI (3) Pneumonia Code(s): J18.9 - PNEUMONIA, UNSPECIFIED ORGANISM Status: Acute Plan: Continue Zithromax (4) SIRS (systemic inflammatory response syndrome) Code(s): R65.10 - SIRS OF NON-INFECTIOUS ORIGIN W/O ACUTE ORGAN DYSFUNCTION Status: Acute - Plan continue antibiotics, respiratory therapy, DVT proph w/SCDs Continue resp isolation Pulmonary supportive measures Continue Zithromax 500mg IV daily O2 support, may need home O2 AM lab: CBC, CRP, Ferritin
[2019-12-05 04:43] LABS: Anion Gap 13 mmol/L (10-20); BUN (Urea Nitrogen) 7 mg/dL (7.0-18.7); Calc. Creatinine Clearance 153 mL/min (70-130); Calcium 8.9 mg/dL (7.8-10.44); Carbon Dioxide 20 mmol/L (22-29); Chloride 107 mmol/L (98-107); Estimated GFR-MDRD Greater than 90; Glucose 92 mg/dL (70-105); Potassium 3.8 mmol/L (3.5-5.1); Sodium 136 mmol/L (136-145)
[2019-12-05 06:13] LABS: Band 15 % (5-11); Eosinophils 1 % (0-10); Hemoglobin 13.9 g/dL (12.0-16.0); Lymphocytes 12 % (21-51); MDiff Complete? YES; Mean Corpuscular HGB CONC 32.9 g/dL (32.0-36.0); Mean Corpuscular Hemoglobin 30.1 pg (27.0-31.0); Mean Corpuscular Volume 91.6 fL (78.0-98.0); Mean Platelet Volume 7.7 fL (7.4-10.4); Monocytes 6 % (0-10); Neutrophil 64 % (42-75); Platelet Count 385 thou/uL (130-400); RBC Distribution Width 11.6 % (11.5-14.5); Reactive Lymphocytes 2 % (0-10); Red Blood Cell (RBC) Count 4.61 mill/uL (4.20-5.40)
[2019-12-05] MEDS: Ascorbic Acid 500 mg Chewable Tablet PO SCH (08:48)
[2019-12-05] MEDS: Zinc Sulfate 220 MG CAP PO SCH (08:48)
[2019-12-05] MEDS: Enoxaparin Sodium 40 MG/0.4 ML SYRINGE SC SCH ×2 (08:48→09:50)
[2019-12-05] MEDS ORDERED: Famotidine 20 MG TAB PO SCH (09:00)
[2019-12-05 12:52] VITALS: TEMP 99.1
--- NOTE | 2019-12-05 16:06 | EKG ---
Test Reason : Blood Pressure : / mmHG Vent. Rate : 055 BPM Atrial Rate : 055 BPM P-R Int : 118 ms QRS Dur : 102 ms QT Int : 424 ms P-R-T Axes : 023 049 010 degrees QTc Int : 405 ms Sinus bradycardia Nonspecific T wave abnormality Abnormal ECG No previous ECGs available Confirmed by MANAN ROUSSEAU (2) on 12/05/2019 4:06:30 PM Referred By: DARIUS Confirmed By:MANAN ROUSSEAU
[2019-12-05 17:17] VITALS: BP 109/69
--- NOTE | 2019-12-06 01:58 | DIS ---
DATE OF ADMISSION: 11/30/2019 DATE OF DISCHARGE: 12/05/2019 DISCHARGE DIAGNOSES: 1. COVID-19 viral pneumonia. 2. Acute hypoxic respiratory failure secondary to #1, improved. 3. Systemic inflammatory response syndrome secondary to #1, resolved. CONSULTATIONS: Dr. Liang with Pulmonology Service. PERTINENT LABORATORY AND X-RAY FINDINGS: Potassium ranged between 3.2 to 3.8. Lactic acid level 0.9. Ferritin ranged between 180.3 to 217.4. Lactate dehydrogenase 401, CRP ranged between 3.72 to 9.53. D-dimer 0.83. COVID-19 PCR positive 11/30/2019. Blood cultures x2 dated 11/30/2019, showed no growth at 5 days. Portable chest x-ray dated 11/30/2019, showed bilateral interstitial and patchy parenchymal changes. HOSPITAL COURSE: The patient was initially admitted after presenting with shortness of breath, fever, and bilateral pulmonary infiltrates. The patient was evaluated for COVID-19 by PCR, which was positive as stated previously. The patient was placed in respiratory isolation and given IV antibiotics including Zithromax. The patient met SIRS criteria and received pulmonary supportive measures in addition to oxygen supplementation. The patient was slow to clinically improve, however, was able to wean off oxygen support, maintaining O2 saturations in the mid 90% range on room air. The patient completed 5-day course of IV azithromycin in addition to bronchodilator support. I have examined the patient at the time of discharge and discussed followup instructions. The patient verbalized understanding and agreement, ready for discharge on 12/05/2019. DISCHARGE MEDICATIONS: 1. Zithromax 250 mg p.o. daily x5 days. 2. Zinc sulfate 220 mg p.o. daily. 3. Benzonatate 100 mg p.o. t.i.d. p.r.n. FOLLOWUP: The [facility] in 14 days. SPECIAL INSTRUCTIONS: Self quarantine x14 days. ACTIVITY: Ad-umm. DIET: Regular. CODE STATUS: Full. DISPOSITION: Home on 12/05/2019. TIME SPENT: Total time preparing and coordinating discharge, 35 minutes. Job ID: [id number]
--- NOTE | 2019-12-06 04:25 | PQF ---
Sally Reed CHARLES DO [id number] CLINICAL DOCUMENTATION CLARIFICATION FORM: POST DISCHARGE Addendum to original discharge summary date: ____ Late entry note date: __ DATE:12/06/2019 ATTN: [place] Please exercise your independent, professional judgment in responding to the clarification form. Clinical indicators are provided on the bottom of this form for your review Please check appropriate box(s) to clarify if the following diagnosis has been ruled in or ruled out: Sepsis [ ] Ruled in diagnosis [ ] Continue to treat [ ] Resolved [ x ] Ruled out diagnosis [ ] Cannot rule out diagnosis [ ] Other diagnosis [ ] Unable to determine For continuity of documentation, please document condition throughout progress notes and discharge summary. Thank You. CLINICAL INDICATORS - SIGNS / SYMPTOMS / LABS Laboratory 11/29 WBC 14.7, Plt count 451, Neutrophils 83.9, Lymphocytes 11.4 Covid -19 test 11/29 Positive Blood culture 11/29 No growth after 5 days Vital signs 11/29 BP 108/57, Pulse 103, Resp 42 Temp 98.9, o2 sat 97% Chest Xray 11/29 Impression: bilateral diffuse [id number] suggestive viral infection H&P p1 11/29 Dr Sanchez presented with SOB and fever for the past week H&P p1 11/29 Dr Sanchez She was found febrile, tachycardia and tachypnea with elevated white count concerning for Sepsis H&P p1 11/29 Dr Sanchez Acute hypoxic respiratory failure H&P p1 11/29 Dr Sanchez Sepsis with Coronavirus infection and Pneumonia Pn p6 12/03 SIRS RISK FACTORS H&P p1 11/29 - Bilateral Pneumonia H&P p1 11/29 - Coronavirus infection TREATMENTS SEP 29 IV Rocephin 1gm SEP 29 IV Azithromycin 500mg SEP 29 IVF NS 1L SEP 29 - Tussionex 2mh oral Covid -19 Test 11/29 Blood culture 11/29 Respiratory panel 11/29 4L oxygen Chest X-ray 11/29 Pulmonary consult 11/30 Kenji Phillips (This form is maintained as a part of the permanent medical record) 2014 [employer]. All Rights Reserved [email or web address]
[2019-12-06] MEDS ORDERED: Azithromycin 250 MG TAB PO SCH (09:00)
== END 2019-12-05 17:15 | disposition home or self-care (01) | DRG 177 ==
LOC: ERS 10:51 → CCU 12:52 → 2SW 12-01 11:40
PROVIDERS: ADMIT Internal Medicine; ATTEND Internal Medicine
PROC: 8E0ZXY6 Isolation (ICD-10-PCS; principal; 2019-11-30)
PROC: 30233N1 Transfusion of Nonautologous Red Blood Cells into Peripheral Vein, Percutaneous Approach (ICD-10-PCS; 2019-11-30)
DX: U07.1 COVID-19 (principal); J12.89 Other viral pneumonia; J96.01 Acute respiratory failure with hypoxia; E86.0 Dehydration
CPT/HCPCS: 36415; 36430; 71045; 80048; 80053; 81003; 81015; 82728; 83605; 83615; 83880; 84484; 84703; 85007; 85025; 85027; 85379; 86140; 86850; 86900; 86901; 87040; 87635; 93005; 93010; 96365; 96367; J0456; J0696; J1650; J2765; J3490; J7050; P9016; S0028; U0003

== ENCOUNTER 2023-06-15 13:15 | Emergency (ER) | payer SELFPAY ==
[2023-06-15 14:46] LABS: #Eosinphils 0.1 thou/uL (0.0-0.7); #Monocytes 0.4 thou/uL (0.11-0.59); #Neutrophils 5.7 thou/uL (1.40-6.50); %Basophils 0.3 % (0.0-1.0); %Eosinophils 0.6 % (0.0-10.0); %Lymphocytes 21.4 % (21.0-51.0); %Monocytes 4.9 % (0.0-10.0); %Neutrophils 72.5 % (42.0-75.0); Hematocrit 42.3 % (36.0-47.0); Hemoglobin 14.1 g/dL (12.0-16.0); Mean Corpuscular HGB CONC 33.3 g/dL (32.0-36.0); Mean Corpuscular Hemoglobin 30.7 pg (27.0-31.0); Mean Platelet Volume 10.6 fL (7.4-10.4); Platelet Count 231 10x3/uL (130-400); RBC Distribution Width 12.6 % (11.5-14.5); White Blood Cell (WBC) Count 7.8 10x3/uL (4.8-10.8)
[2023-06-15 14:55] LABS: BHCG - Serum POSITIVE (NEGATIVE); Pregs Control Background? CLEAR/WHITE (CLR/WHITE); Pregs Control Bar Appear? YES (CONTROL BAR)
[2023-06-15 15:10] LABS: Bilirubin Negative (Negative); Blood, Urine 3+ (Negative); CAUTI Indications for Culture Pelvic or flank pain; Clarity Clear (Clear); Glucose, Urine (Dipstick) Normal (Negative); Ketone, Urine Negative (Negative); Leukocyte Negative Leu/uL (Negative); Nitrite Negative (Negative); Protein, Urine (Dipstick) Negative (Neg-Trace); RBC/HPF 0-3 HPF (0-3); Specific Gravity, Urine 1.011 (1.002-1.036); Squamous Epithelial 0-3 HPF (0-3); Urobilinogen Normal mg/dL (Less than 2); WBC/HPF 0-3 HPF (0-3); pH, Urine 6.5 (5.0-9.0)
[2023-06-15 15:14] LABS: ALT (SGPT) 11 U/L (8-55); AST (SGOT) 14 U/L (5-34); Albumin 4.6 g/dL (3.5-5.0); Alkaline Phosphatase 60 U/L (40-110); Anion Gap 12 mmol/L (10-20); BUN (Urea Nitrogen) 9 mg/dL (7.0-18.7); Bilirubin, Total 0.3 mg/dL (0.2-1.2); Calc. Creatinine Clearance 0 mL/min (70-130); Calcium 9.1 mg/dL (7.8-10.44); Carbon Dioxide 20 mmol/L (22-29); Chloride 108 mmol/L (98-107); Estimated GFR 115; Globulin 3.4 g/dL (2.4-3.5); Glucose 96 mg/dL (70-105); Potassium 3.9 mmol/L (3.5-5.1); Sodium 136 mmol/L (136-145)
[2023-06-15 15:16] LABS: Bacteria/HPF 1+ HPF (None Seen)
[2023-06-15 15:17] LABS: Urine Culture Reflex No No
[2023-06-15] MEDS ORDERED: Acetaminophen 500 MG TAB ONE (16:06)
[2023-06-15 21:10] LABS: GC by PCR, Vaginal Swab Not Detected (NotDetected)
== END 2023-06-15 17:35 | disposition home or self-care (01) ==
LOC: ERS 13:15
DX: O20.9 Hemorrhage in early pregnancy, unspecified (principal); Z3A.11 11 weeks gestation of pregnancy
CPT/HCPCS: 36415; 76856; 80053; 81001; 84702; 84703; 85025; 86900; 86901; 87086; 87480; 87510; 87591; 87660

== ENCOUNTER 2023-10-16 11:53 | Emergency (ER) | payer MEDICAID, SELFPAY ==
[2023-10-16 12:22] LABS: #Monocytes 0.4 thou/uL (0.11-0.59); #Neutrophils 4.7 thou/uL (1.40-6.50); %Basophils 0.2 % (0.0-1.0); %Eosinophils 0.3 % (0.0-10.0); %Lymphocytes 18.6 % (21.0-51.0); %Monocytes 5.8 % (0.0-10.0); %Neutrophils 74.8 % (42.0-75.0); Hematocrit 40.5 % (36.0-47.0); Hemoglobin 13.4 g/dL (12.0-16.0); Mean Corpuscular HGB CONC 33.1 g/dL (32.0-36.0); Mean Corpuscular Volume 84.7 fl (78.0-98.0); Mean Platelet Volume 10.8 fL (7.4-10.4); Platelet Count 219 10x3/uL (130-400); RBC Distribution Width 16.4 % (11.5-14.5); Red Blood Cell (RBC) Count 4.78 mill/uL (4.20-5.40); White Blood Cell (WBC) Count 6.3 10x3/uL (4.8-10.8)
[2023-10-16 12:25] LABS: Bacteria/HPF None Seen HPF (None Seen); Bilirubin Negative (Negative); Blood, Urine Negative (Negative); CAUTI Indications for Culture Pregnancy; Clarity Clear (Clear); Glucose, Urine (Dipstick) Normal (Negative); Ketone, Urine Negative (Negative); Leukocyte 75 Leu/uL (Negative); Nitrite Negative (Negative); Protein, Urine (Dipstick) Negative (Neg-Trace); RBC/HPF 0-3 HPF (0-3); Squamous Epithelial 0-3 HPF (0-3); Urobilinogen Normal mg/dL (Less than 2); WBC/HPF 0-3 HPF (0-3); pH, Urine 6.5 (5.0-9.0)
[2023-10-16 12:55] LABS: ALT (SGPT) 12 U/L (8-55); AST (SGOT) 12 U/L (5-34); Albumin 4.3 g/dL (3.5-5.0); Alkaline Phosphatase 50 U/L (40-110); Anion Gap 12 mmol/L (10-20); BUN (Urea Nitrogen) 9 mg/dL (7.0-18.7); Bilirubin, Total 0.4 mg/dL (0.2-1.2); Calc. Creatinine Clearance 0 mL/min (70-130); Calcium 9.7 mg/dL (7.8-10.44); Carbon Dioxide 21 mmol/L (22-29); Chloride 107 mmol/L (98-107); Estimated GFR 113; Globulin 3.6 g/dL (2.4-3.5); Glucose 94 mg/dL (70-105); Lipase 41 U/L (8-78); Protein, Total 7.9 g/dL (6.0-8.3); Sodium 136 mmol/L (136-145)
[2023-10-16] MEDS ORDERED: Ondansetron PF 4 MG/2 ML Vial ONE (12:55)
[2023-10-16] MEDS ORDERED: Morphine 4 MG/ML VIAL ONE (12:55)
[2023-10-16 13:06] LABS: Urine Culture Reflex Yes Yes
== END 2023-10-16 14:59 | disposition home or self-care (01) ==
LOC: ERS 11:53
DX: R10.9 Unspecified abdominal pain (principal); E11.9 Type 2 diabetes mellitus without complications
CPT/HCPCS: 36415; 76856; 80053; 81001; 83690; 84702; 85025; 87086; 96374; 96375; J2270; J2405